=== PATIENT | female | born 1985 | race Caucasian/White ===

== ENCOUNTER 2018-08-04 05:30 | Inpatient (IN) | payer BC ==
[2018-08-04] MEDS ORDERED: Ondansetron PF 4 MG/2 ML Vial IVP PRN ×2 (07:42→14:58)
[2018-08-04] MEDS ORDERED: NS / Oxytocin 40 units/1000ml 1,000 ML IV PRN (07:42)
[2018-08-04] MEDS ORDERED: HYDROcodone/Acetaminophen 5/325 mg Tablet PO PRN ×3 (07:42→14:58)
[2018-08-04] MEDS ORDERED: NS w/ Oxytocin 10 units 500 ML IV SCH ×2 (07:42)
[2018-08-04] MEDS ORDERED: Ibuprofen 800 MG TAB PO PRN (07:42)
[2018-08-04] MEDS ORDERED: Butorphanol Tartrate 1 MG/ML VIAL SLOW IVP PRN (07:42)
[2018-08-04] MEDS ORDERED: Lidocaine 1% (PF) 30 ML VIAL SC PRN (07:42)
[2018-08-04] MEDS ORDERED: Promethazine HCl 25 MG/ML VIAL IM PRN (07:42)
[2018-08-04] MEDS: Lactated Ringer's 1,000 ML IV SCH ×2 (08:10→12:40)
--- NOTE | 2018-08-04 08:15 | PDOC.LDHP ---
Labor and Delivery H&P Chief complaint: scheduled induction HPI: Pt is a 33yo @ 39 weeks here for elective IOL. Current gestational age (weeks): 39 Due date: 08/11/18 Grav: 2 Para: 1 OB History Details: x 1 Current complications: none Abnormal US findings: No Past Medical History: none Current medications: pre- vitamins Previous surgical history: other (IVF) Allergies/Adverse Reactions: Allergies Allergy/AdvReac Type Severity Reaction Status Date / Time sulfamethoxazole Allergy Intermediate hives/rash Verified 08/04/18 08:10 [From Bactrim] trimethoprim [From Bactrim] Allergy Intermediate hives/rash Verified 08/04/18 08 :10 Social history: none - Physical Exam Vital signs reviewed and normal: yes General: NAD Heart: RRR Lungs: CTAB Abdomen: gravid Extremeties: no edema FHT: category 1 - Vaginal Exam cm dilated: 3 (arom clear on admit exam) Effacement: 50% Station: -2 - OB Labs Blood type: A RH: negative Antibody Screen: negative HIV: negative RPR: negative HEPSAg: negative 1 hour GCT: negative GBS: negative Urine drug screen: not done Rubella: immune - Assessment L&D Assessment: elective induction at term - Plan Plan: admit to L&D, labor augmentation if indicated, observation in L&D, informed consent obtained -: IOL @ 39 weeks, hx of IVF. Plan for AROM and pitocin, anticipate .
[2018-08-04 08:43] VITALS: BMI 28.8
[2018-08-04 08:56] LABS: Hemoglobin 11.2 g/dL (12.0-16.0); Mean Corpuscular HGB CONC 35.4 g/dL (32.0-36.0); Mean Corpuscular Hemoglobin 32.6 pg (27.0-31.0); Mean Corpuscular Volume 92.1 fL (78.0-98.0); Mean Platelet Volume 9.6 fL (7.4-10.4); Platelet Count 167 thou/uL (130-400); RBC Distribution Width 11.9 % (11.5-14.5); Red Blood Cell (RBC) Count 3.44 mill/uL (4.20-5.40); White Blood Cell (WBC) Count 8.2 thou/uL (4.8-10.8)
[2018-08-04] MEDS ORDERED: Fentanyl 4 mcg/Bup 0.1% Cadd 100 ML ONE (08:57)
[2018-08-04 09:40] LABS: Hep B Surf Ag Non-Reactive S/CO (NonReactive)
[2018-08-04] MEDS ORDERED: Bupivacaine HCl 0.25%/Epi 0.0005/PF 10 ML VIAL FS ONE (11:11)
--- NOTE | 2018-08-04 14:13 | PDOC.OPDEL ---
OB Operative/Delivery Note Delivery Dr/Surgeon: Giovani Pre-Delivery Diagnosis: elective induction Procedure/Post Delivery Dx: spontaneous vaginal delivery Weeks gestation: 39 Anesthesia: epidural - Findings A Sex: female - 1 min: 9 - 5 min: 9 - Additional Findings/Plan Placenta delivered: spontaneous Repaired Obstetrical Laceration: right labial Estimated blood loss: qbl pending Compilations/Other Findings: loose nuchal x 1 Post delivery plan: routine recovery
[2018-08-04] MEDS ORDERED: Adacel (T-DAP) 0.5 ML SYRINGE IM ONE (14:58)
[2018-08-04] MEDS ORDERED: Milk Of Magnesia 30 ML UDCUP PO PRN (14:58)
[2018-08-04] MEDS ORDERED: Bisacodyl 10 MG SUPP PR PRN (14:58)
[2018-08-04] MEDS ORDERED: Benzocaine/Menthol 20-0.5% 60 ML CAN TOP PRN (14:58)
[2018-08-04] MEDS ORDERED: Lanolin Ointment 7 GM TUBE TOP PRN (14:58)
[2018-08-04] MEDS ORDERED: diphenhydrAMINE 25 MG CAP PO PRN (14:58)
[2018-08-04] MEDS ORDERED: NS / Oxytocin 40 units/1000ml 1,000 ML IV SCH (14:58)
[2018-08-04] MEDS ORDERED: Preparation H Ointment 28 GM TUBE PR PRN (14:58)
[2018-08-04] MEDS: Ibuprofen 800 MG TAB PO SCH ×2 (15:01→21:51)
[2018-08-04] MEDS: HYDROcodone/Acetaminophen 5/325 mg Tablet PO PRN ×2 (15:03→19:09)
[2018-08-04] MEDS: Ferrous Sulfate 325 MG TAB PO SCH (16:52)
[2018-08-04] MEDS: Docusate Calcium (SURFAK) 240 MG CAP PO SCH (21:51)
[2018-08-05] MEDS: HYDROcodone/Acetaminophen 5/325 mg Tablet PO PRN ×4 (04:38→20:30)
--- NOTE | 2018-08-05 05:03 | PDOC.PP ---
Post Progress Note Post Day #: 1 Subjective: Doing well, putting baby to breast for colostrum, mild aftercramps PO intake tolerated: yes Flatus: yes Ambulation: yes Vital Signs (12 hours) Temp Pulse Resp BP Pulse Ox 08/05/18 00:05 98.1 F 75 18 103/59 L 08/04/18 19:10 97.9 F 65 18 105/60 98 08/04/18 18:30 98.2 F 76 18 114/70 08/04/18 17:30 98.3 F 72 18 109/57 L Weight Weight 195 lb - Physical Examination General: NAD Cardiovascular: no m/r/g Respiratory: clear to auscultation bilaterally Abdominal: + bowel sounds, lochia, no distention Extremities: negative homans (B) Neurological: no gross focal deficits Psychiatric: A&Ox3, normal affect Result Diagrams: 08/04/18 08:19 Additional Labs: Post Labs Blood Type A NEGATIVE 08/04/18 08:19 Hep Bs Antigen Non-Reactive S/CO (NonReactive) 08/04/18 08:19 (1) Term delivered Code(s): O80 - ENCOUNTER FOR FULL-TERM UNCOMPLICATED DELIVERY Status: Acute - Assessment/Plan doing well, PPD1...patient has requested to stay for rest and recuperation. Plan: Afebrile. We will monitor today. Continue attempts. Prob [facility] tomorrow 08/06
[2018-08-05] MEDS: Ibuprofen 800 MG TAB PO SCH ×3 (06:01→21:56)
--- NOTE | 2018-08-05 07:50 | PDOC.EVN ---
Event Note - Event Note Event Note: Hct 31 this am
[2018-08-05] MEDS: Ferrous Sulfate 325 MG TAB PO SCH ×2 (08:14→16:42)
[2018-08-05] MEDS: Docusate Calcium (SURFAK) 240 MG CAP PO SCH ×2 (09:01→20:30)
[2018-08-05] MEDS: Prenatal Vitamin 1 TAB PO SCH (09:01)
[2018-08-06] MEDS: Ibuprofen 800 MG TAB PO SCH (05:59)
[2018-08-06] MEDS: Ferrous Sulfate 325 MG TAB PO SCH (07:59)
[2018-08-06 08:13] VITALS: BP 118/70; TEMP 97.9
[2018-08-06] MEDS: Docusate Calcium (SURFAK) 240 MG CAP PO SCH (09:42)
[2018-08-06] MEDS: Prenatal Vitamin 1 TAB PO SCH (09:42)
== END 2018-08-06 12:03 | disposition home or self-care (01) | DRG 807 ==
LOC: L&D 07:34 → 3SW 16:08
PROVIDERS: ADMIT Obstetrics & Gynecology; ATTEND Obstetrics & Gynecology
PROC: 10E0XZZ Delivery of Products of Conception, External Approach (ICD-10-PCS; principal; 2018-08-04)
PROC: 10907ZC Drainage of Amniotic Fluid, Therapeutic from Products of Conception, Via Natural or Artificial Opening (ICD-10-PCS; 2018-08-04)
PROC: 3E033VJ Introduction of Other Hormone into Peripheral Vein, Percutaneous Approach (ICD-10-PCS; 2018-08-04)
PROC: 0HQ9XZZ Repair Perineum Skin, External Approach (ICD-10-PCS; 2018-08-04)
DX: O70.0 First degree perineal laceration during delivery (principal); Z37.0 Single live birth; Z3A.39 39 weeks gestation of pregnancy
CPT/HCPCS: 36415; 51702; 85014; 85027; 86850; 86900; 86901; 87340; 90715; J2001

== ENCOUNTER 2020-07-04 10:11 | Outpatient (CLI) | payer BC ==
[2020-07-04 17:57] LABS: SARS-CoV-2 MS2 Positive; SARS-CoV-2 N Gene Negative; SARS-CoV-2 S Gene Negative; SARS-CoV-2 by NAA Not Detected (NotDetected); SARS-CoV-2 orf1ab Negative
== END 2020-07-04 10:12 | disposition home or self-care (01) ==
LOC: LABBT 10:11
PROVIDERS: ATTEND Obstetrics & Gynecology
DX: Z01.812 Encounter for preprocedural laboratory examination (principal); Z20.828 Contact with and (suspected) exposure to other viral communicable diseases
CPT/HCPCS: 87635; U0003

== ENCOUNTER 2020-07-07 06:01 | Inpatient (IN) | payer BC, OTHER ==
[2020-07-07] MEDS ORDERED: HYDROcodone/Acetaminophen 5/325 mg Tablet PO PRN ×4 (06:40→11:40)
[2020-07-07] MEDS ORDERED: Ibuprofen 800 MG TAB PO PRN (06:40)
[2020-07-07] MEDS ORDERED: Ondansetron PF 4 MG/2 ML Vial IVP PRN ×3 (06:40→11:40)
[2020-07-07] MEDS ORDERED: NS w/ Oxytocin 10 units 500 ML IV SCH ×2 (06:40)
[2020-07-07] MEDS ORDERED: hydrALAZINE 20 MG/ML VIAL SLOW IVP PRN ×2 (06:40→11:40)
[2020-07-07] MEDS ORDERED: Lidocaine 1% (PF) 30 ML VIAL SC PRN (06:40)
[2020-07-07] MEDS ORDERED: Butorphanol Tartrate 1 MG/ML VIAL SLOW IVP PRN (06:40)
[2020-07-07] MEDS ORDERED: Promethazine HCl 25 MG/ML VIAL IM PRN ×3 (06:40→11:40)
[2020-07-07] MEDS ORDERED: NS / Oxytocin 40 units/1000ml 1,000 ML IV PRN (06:40)
[2020-07-07 06:46] VITALS: BMI 30.2
[2020-07-07] MEDS: Lactated Ringer's 1,000 ML IV SCH ×2 (07:10→10:03)
[2020-07-07 07:40] LABS: Hemoglobin 11.3 g/dL (12.0-16.0); Mean Corpuscular HGB CONC 33.2 g/dL (32.0-36.0); Mean Corpuscular Hemoglobin 30.5 pg (27.0-31.0); Mean Corpuscular Volume 91.7 fL (78.0-98.0); Mean Platelet Volume 10.3 fL (7.4-10.4); Platelet Count 176 thou/uL (130-400); RBC Distribution Width 12.2 % (11.5-14.5); Red Blood Cell (RBC) Count 3.72 mill/uL (4.20-5.40); White Blood Cell (WBC) Count 8.6 thou/uL (4.8-10.8)
[2020-07-07 08:18] LABS: HBSAg Index 0.19 S/CO (0-0.99); Hep B Surf Ag Non-Reactive S/CO (NonReactive); Syphilis Antibody Nonreactive (Nonreactive); Syphilis Antibody Index 0.04 S/CO (<1.00 Non-Reactive)
[2020-07-07] MEDS ORDERED: DISCONTINUE ALL PREVIOUS NARCOTICS FS SCH (08:30)
[2020-07-07] MEDS ORDERED: Bupivacaine 0.5% 20 ML, fentaNYL Citrate/PF 400 MCG in Sodium Chloride 0.9% 72 ML EPIDURAL SCH (08:30)
[2020-07-07] MEDS ORDERED: Bupivacaine 0.25% HCL 30 ML VIAL ONE (09:41)
[2020-07-07] MEDS ORDERED: Lactated Ringer's 500 ML IV PRN (10:04)
[2020-07-07] MEDS ORDERED: Acetaminophen 325 MG TAB PO PRN (10:04)
[2020-07-07] MEDS ORDERED: diphenhydrAMINE 50 MG/ML VIAL IVP PRN (10:04)
[2020-07-07] MEDS ORDERED: ePHEDrine 50 MG/ML VIAL SLOW IVP PRN (10:04)
[2020-07-07] MEDS ORDERED: Naloxone HCl 0.4 mg/ml Vial IVP PRN ×2 (10:04)
[2020-07-07] MEDS ORDERED: Fentanyl 4 mcg/Bupivacaine 0.1% Cassette 100 ML EPIDURAL SCH (10:15)
[2020-07-07] MEDS ORDERED: Communication Order-Pharmacy FS SCH (10:15)
[2020-07-07] MEDS: NS / Oxytocin 40 units/1000ml 1,000 ML IV SCH ×2 (10:52→12:20)
--- NOTE | 2020-07-07 11:09 | PDOC.OPDEL ---
OB Operative/Delivery Note Delivery Dr/Surgeon: Giovani Pre-Delivery Diagnosis: elective induction Procedure/Post Delivery Dx: spontaneous vaginal delivery Weeks gestation: 39 Anesthesia: epidural - Findings A Sex: male - Additional Findings/Plan Placenta delivered: spontaneous Repaired Obstetrical Laceration: none Estimated blood loss: 100ml Post delivery plan: routine recovery
[2020-07-07] MEDS ORDERED: Bisacodyl 10 MG SUPP PR PRN (11:40)
[2020-07-07] MEDS ORDERED: diphenhydrAMINE 25 MG CAP PO PRN (11:40)
[2020-07-07] MEDS ORDERED: Milk Of Magnesia 30 ML UDCUP PO PRN (11:40)
[2020-07-07] MEDS: Ibuprofen 800 MG TAB PO SCH (16:02)
[2020-07-07] MEDS: Ferrous Sulfate 325 MG TAB PO SCH (18:34)
[2020-07-07] MEDS: Docusate Calcium (SURFAK) 240 MG CAP PO SCH (21:54)
[2020-07-08] MEDS: Ibuprofen 800 MG TAB PO SCH ×4 (00:35→21:32)
--- NOTE | 2020-07-08 08:07 | PDOC.PP ---
Post Progress Note Post Day #: 1 Subjective: doing well, normal lochia PO intake tolerated: yes Flatus: yes Ambulation: yes Vital Signs (12 hours) Temp Pulse Resp BP Pulse Ox 07/08/20 07:59 97.9 F 68 20 115/74 98 07/08/20 05:20 98.1 F 72 14 116/75 07/08/20 00:30 97.8 F 71 15 110/61 Weight Weight 205 lb - Physical Examination General: NAD Respiratory: non-labored breathing Abdominal: no distention Fundus firm & at: below umb Psychiatric: A&Ox3, normal affect Result Diagrams: 07/07/20 07:13 Additional Labs: Post Labs Hep Bs Antigen Non-Reactive S/CO (NonReactive) 07/07/20 07:13 Blood Type A NEGATIVE 07/07/20 07:13 (1) Term delivered Code(s): O80 - ENCOUNTER FOR FULL-TERM UNCOMPLICATED DELIVERY Status: Acute - Assessment/Plan PPD 1 doing well, request DC tomorrow.
[2020-07-08] MEDS: Ferrous Sulfate 325 MG TAB PO SCH ×2 (08:11→16:11)
[2020-07-08] MEDS: Docusate Calcium (SURFAK) 240 MG CAP PO SCH ×2 (08:14→21:33)
[2020-07-08] MEDS ORDERED: Adacel (T-DAP) 0.5 ML SYRINGE IM ONE (11:40)
[2020-07-09] MEDS: Ibuprofen 800 MG TAB PO SCH (05:22)
[2020-07-09] MEDS: Ferrous Sulfate 325 MG TAB PO SCH (07:26)
--- NOTE | 2020-07-09 07:55 | PDOC.PP ---
Post Progress Note Post Day #: 2 Subjective: doing well, no concerns PO intake tolerated: yes Flatus: yes Ambulation: yes Weight Weight 205 lb - Physical Examination General: NAD Respiratory: non-labored breathing Abdominal: no distention Fundus firm & at: below umb Psychiatric: A&Ox3, normal affect Result Diagrams: 07/07/20 07:13 Additional Labs: Post Labs Hep Bs Antigen Non-Reactive S/CO (NonReactive) 07/07/20 07:13 Blood Type A NEGATIVE 07/07/20 07:13 (1) Term delivered Code(s): O80 - ENCOUNTER FOR FULL-TERM UNCOMPLICATED DELIVERY Status: Acute - Assessment/Plan PPD2 doing well, no concerns-plan for DC today.
[2020-07-09] MEDS: Docusate Calcium (SURFAK) 240 MG CAP PO SCH (07:57)
[2020-07-09 08:23] VITALS: BP 130/84; TEMP 97.7
== END 2020-07-09 11:25 | disposition home or self-care (01) | DRG 807 ==
LOC: L&D-LIB 06:01 → 3SW 13:51 → EDSTATUS 07-14 14:30
PROVIDERS: ADMIT Obstetrics & Gynecology; ATTEND Obstetrics & Gynecology
PROC: 10E0XZZ Delivery of Products of Conception, External Approach (ICD-10-PCS; principal; 2020-07-07)
DX: O80 Encounter for full-term uncomplicated delivery (principal); Z37.0 Single live birth; Z3A.39 39 weeks gestation of pregnancy; Z20.828 Contact with and (suspected) exposure to other viral communicable diseases
CPT/HCPCS: 36415; 51702; 85027; 86780; 86850; 86870; 86900; 86901; 87340; 87635; J2590; J3010; J3490; S0020; U0003